=== PATIENT | male | born 1995 | race Caucasian/White ===

== ENCOUNTER 2016-03-13 12:31 | Emergency (ER) | payer OTHER ==
[~2016-03-13] VITALS: Ht 180.3 cm; Wt 86.8 kg
[2016-03-13 12:34] VITALS: PULSE 88; TEMP 36.9; O2SAT 100; Ht 180.3 cm; Wt 86.8 kg
--- NOTE | 2016-03-13 13:30 | DIAGNOSTIC IMAGING REPORT ---
LEFT WRIST MIN 3 VIEWS ROUTINE CLINICAL HISTORY: Left wrist pain. Trauma. COMPARISON: None. DISCUSSION: No fractures or dislocations are visualized. There are no erosive changes. IMPRESSION: No fractures identified. No evidence of erosive disease. Electronically signed by: Carlos Moody M.D. 03/13/2016 1:28 PM Dictated Date/Time: 03/13/2016 1:28 PM
--- NOTE | 2016-03-13 14:11 | EMERGENCY ROOM VISIT NOTE ---
ED Visit Note First contact with patient: 12:39 CHIEF COMPLAINT: Left wrist and forearm pain times one week HISTORY OF PRESENT ILLNESS: Patient is a left-hand dominant 20-year-old white male who presents to the emergency department for evaluation of pain in his left wrist and forearm. He states that it has been present for several months, but has gotten worse over the last couple of weeks. He states that he does a lot of computer work including typing and playing video games. He also works hanging [employer]. He describes an intermittent, throbbing, aching pain largely in the radial aspect of the wrist and forearm. He occasionally notes some tingling into his first through third fingers. His discomfort is worsened by certain movements, positions and activities. He has not used any medications for his pain he tried resting and wearing a wrist splint. At the present time he has no pain and rates his discomfort a 2/10. He expresses concerns regarding possible tendinitis or carpal tunnel syndrome. He does not have any elbow pain. There was no direct trauma to the area prior to the onset of his symptoms. REVIEW OF SYSTEMS: Review of systems as per HPI. All other systems reviewed were negative. At least 6 systems reviewed. PMH: Electronic medical records are reviewed and summarized as above/below. See Problem List. SOCIAL HISTORY: Patient lives at home. Nonsmoker. PHYSICAL EXAM: Vital Signs: Reviewed Nurse's notes. MUSCULOSKELETAL: Examination of the left upper extremity did not show any evidence for trauma. No ecchymosis, abrasions, soft tissue swelling or joint effusion. He has slight discomfort on palpation of the radial aspect of the wrist and into the first metacarpal. No pain across the dorsum of the wrist. No anatomic snuffbox tenderness. He does not have any pain over the elbow or the medial or lateral epicondyles. Elbow range of motion is full. No pain with pronation or supination. No pain with resisted wrist flexion or extension. Negative Tinel' s at the elbow and the wrist. Negative Phalen's. Shamir's test is normal. Wrist and finger range of motion are full. Radial and ulnar pulses are easily palpable. EMERGENCY DEPARTMENT COURSE: X-rays of the left wrist were obtained and were unremarkable. Differential diagnoses entertained include tendinitis, carpal tunnel syndrome, overuse injury, fracture, sprain, among others. The patient was encouraged to wear the wrist splint for support, particularly when he is active. He should take an anti-inflammatory medicine regularly. If his symptoms are not improving, he was advised to follow-up with his primary care provider for further care and management and possible orthopedic evaluation. LEFT WRIST MIN 3 VIEWS ROUTINE CLINICAL HISTORY: Left wrist pain. Trauma. COMPARISON: None. DISCUSSION: No fractures or dislocations are visualized. There are no erosive changes. IMPRESSION: No fractures identified. No evidence of erosive disease. Current/Historical Medications No Active Prescriptions or Reported Meds Allergies Coded Allergies: Amoxicillin (Unverified Allergy, Unknown, RASH, 03/13/16) Penicillins (Unverified Allergy, Unknown, RASH, 03/13/16) Vital Signs Date Time Temp Pulse Resp B/P Pulse Ox O2 Delivery O2 Flow Rate FiO2 03/13/16 14:26 137/78 03/13/16 12:34 36.9 88 16 147/88 100 Room Air Departure Information Impression Primary Impression: Wrist pain, left Prescriptions No Active Prescriptions or Reported Meds Referrals No Doctor, Assigned (PCP) Milad Rivera D.O. Patient Instructions [facility] Additional Instructions Ibuprofen(Motrin, Advil) may be used for fever or pain. Use 600mg every six hours as needed. Take with food. Avoid using more than 2400mg in a 24 hour period. Do not use 2400mg per day for more than three consecutive days without physician direction. Prolonged inappropriate use can lead to stomach upset or ulcers. This medication can be taken if you need to drive, work, or perform activities which may be dangerous when taking narcotic pain medication. (AND/OR) Acetaminophen(Tylenol) may be used for fever or pain. Use 1000mg every six hours as needed. Avoid using more than 3000mg in a 24 hour period. This medication can be taken if you need to drive, work, or perform activities which may be dangerous when taking narcotic pain medication. Ice compresses for 20 minutes at a time four times daily for 2-3 days. Use the wrist lacer as instructed. Rest and elevate your injury. Continue current medications. Return to the ER immediately for any numbness, tingling, severe pain, extreme swelling in the extremity or as needed. Followup with your family doctor or orthopedic surgery if no improvement in 5-7 days.
[2016-03-13 14:26] VITALS: BP 137/78
== END 2016-03-13 14:36 | disposition home or self-care (01) ==
LOC: C.EDB 12:33 → C.EDD 14:36
DX: M25.532 Pain in left wrist (principal)